=== PATIENT | female | born 1980 | race Caucasian/White ===

== ENCOUNTER 2023-02-02 09:58 | Outpatient (RCR) | payer BC, SELFPAY | END 2023-02-02 10:53 | disposition home or self-care (01) | LOC: RPT 09:58 | PROVIDERS: ATTENDING PHYSICIAN Internal Medicine Hematology & Oncology; PRIMARYCARE PHYSICIAN Internal Medicine | DX: C50.111 Malignant neoplasm of central portion of right female breast (principal); R26.89 Other abnormalities of gait and mobility; I89.8 Other specified noninfective disorders of lymphatic vessels and lymph nodes | CPT/HCPCS: 97110; 97112; 97140 ==

== ENCOUNTER → 2023-04-20 12:50 | Outpatient (REF) | payer BC, SELFPAY | LOC: WDC 12:50 | PROVIDERS: ATTENDING PHYSICIAN Radiology Radiation Oncology; FAMILY PHYSICIAN Internal Medicine | DX: R92.2 Inconclusive mammogram (principal); R92.8 Other abnormal and inconclusive findings on diagnostic imaging of breast | CPT/HCPCS: 76641 ==

== ENCOUNTER → 2024-03-11 07:11 | Outpatient (REF) | payer BC, SELFPAY | LOC: WDC 07:11 | PROVIDERS: ATTENDING PHYSICIAN Student in an Organized Health Care Education/Training Program; FAMILY PHYSICIAN Internal Medicine | DX: Z12.31 Encounter for screening mammogram for malignant neoplasm of breast (principal) | CPT/HCPCS: 77063; 77067 ==

== ENCOUNTER → 2024-07-02 13:51 | Outpatient (REF) | payer BC, SELFPAY | LOC: WDC 13:51 | PROVIDERS: ATTENDING PHYSICIAN Radiology Radiation Oncology; FAMILY PHYSICIAN Internal Medicine | DX: R92.2 Inconclusive mammogram (principal) | CPT/HCPCS: 76641 ==

== ENCOUNTER → 2025-01-22 09:45 | Outpatient (REF) | payer BC, SELFPAY | LOC: WDC 09:45 | PROVIDERS: ATTENDING PHYSICIAN Student in an Organized Health Care Education/Training Program; FAMILY PHYSICIAN Internal Medicine | DX: R23.4 Changes in skin texture (principal) | CPT/HCPCS: 76642; 77062; 77066 ==